=== PATIENT | male | born 1945 | race Caucasian/White ===

== ENCOUNTER → 2018-01-31 | Outpatient (CLI) | payer MEDICARE, BC ==
[~2018-01-31] MED LIST: REGADENOSON 0.4 MG/5 ML SYRINGE ONE
== END | disposition home or self-care (01) ==
LOC: CFH 12:13
PROVIDERS: ATTEND Physician Assistant
DX: R07.89 Other chest pain (principal)
CPT/HCPCS: 78452; 93017; A9502; J2785

== ENCOUNTER 2020-07-01 13:46 | Outpatient (CLI) | payer MEDICARE, BC ==
[2020-07-01] MEDS ORDERED: FINA5TAB4 PO (14:22)
[2020-07-01] MEDS ORDERED: METO-93 PO (14:22)
[2020-07-01] MEDS ORDERED: VITA100C10 PO (14:22)
[2020-07-01] MEDS ORDERED: GLUC480L2 PO (14:22)
[2020-07-01] MEDS ORDERED: ASPI81TA45 PO (14:22)
[2020-07-01] MEDS ORDERED: MATURE MVT PO (14:22)
[2020-07-01] MEDS ORDERED: TAMS-11 PO (14:22)
[2020-07-01] MEDS ORDERED: AMLO1CAP6 PO (14:22)
[2020-07-01] MEDS ORDERED: ATOR20TA37 PO (14:22)
[2020-07-01 15:38] LABS: BASOPHILS % (AUTO) 1 % (0-1); EOSINOPHILS % (AUTO) 2 % (1-7); LYMPHOCYTES % (AUTO) 28 % (22-44); MEAN CORPUSCULAR HEMOGLOBIN 33.1 pg (27.5-34.5); MEAN CORPUSCULAR HGB CONC 33.7 g/dL (33.2-36.2); MEAN PLATELET VOLUME 9.9 fL (7.4-10.4); MONOCYTES % (AUTO) 12 % (2-9); NEUTROPHILS % (AUTO) 57 % (42-75); PLATELET COUNT 183 x10^3/uL (130-400); RED CELL DISTRIBUTION WIDTH 15.3 % (9.4-14.8)
[2020-07-01 15:39] LABS: MD NO; MICROSCOPIC NOT IND
[2020-07-01 15:41] LABS: ALBUMIN 3.9 g/dL (3.4-5.0); ANION GAP 5 mmol/L (5-15); CALCIUM 9.6 mg/dL (8.5-10.1); CHLORIDE 108 mmol/L (98-107)
[2020-07-01 15:44] LABS: ALANINE AMINOTRANSFERASE 42 U/L (12-78); ALKALINE PHOSPHATASE 104 U/L (45-117); BILIRUBIN,TOTAL 0.5 mg/dL (0.2-1.0); TOTAL PROTEIN 7.6 g/dL (6.4-8.2)
[2020-07-01 16:01] LABS: INTERNATIONAL NORMALIZED RATIO 0.96 (0.93-1.1); PROTHROMBIN TIME 10.2 Seconds (9.6-11.5)
== END 2020-07-01 23:59 | disposition home or self-care (01) ==
LOC: STAR 13:46
PROVIDERS: ATTEND Urology
DX: Z01.812 Encounter for preprocedural laboratory examination (principal); Z20.822 Contact with and (suspected) exposure to COVID-19; C64.9 Malignant neoplasm of unspecified kidney, except renal pelvis
CPT/HCPCS: 80053; 81003; 85025; 85610; 87086; 87147; 87635; 93005